=== PATIENT | female | born 1960 | race Caucasian/White ===

== ENCOUNTER 2018-04-28 11:52 | Emergency (ER) | payer MEDICARE, MEDICAID ==
[~2018-04-28] VITALS: Ht 157.5 cm; Wt 71.8 kg
[~2018-04-28 11:52] MED LIST: ATOR20TA66 PO; BUS15T PO; CLOP75TA33 PO; FENOFIBRATE PO; LAMO200T PO; LORA10TA7 PO; LURA40TA3 PO; METH750T3 PO; RANI300T7 PO; ROPI1TAB2 PO; Trazodone Hcl PO
[2018-04-28 12:10] VITALS: BP 116/58
[2018-04-28] MEDS ORDERED: morphine 4 MG/ML inj SYRINge IM ONE (12:40)
[2018-04-28] MEDS ORDERED: ondansetron 4mg rapidly disintigrating tab PO ONE (13:05)
[2018-04-28] MEDS ORDERED: normal saline 1000ML IV soln IVB ONE (13:10)
[2018-04-28 13:34] LABS: BASOPHILS % (AUTO) 0.5 % (0-1); EOSINOPHILS # (AUTO) 0.2 X10'3 (0-0.9); EOSINOPHILS % (AUTO) 2.4 % (0-6); HEMATOCRIT 35.6 % (35.0-45.0); HEMOGLOBIN 12.1 g/dl (12.0-16.0); LYMPHOCYTES # (AUTO) 1.6 X10'3 (1.1-4.8); LYMPHOCYTES % (AUTO) 18.3 % (21-51); MEAN CORPUSCULAR HEMOGLOBIN 29.6 PG (27.0-31.0); MEAN CORPUSCULAR HGB CONC 34.1 % (33.0-36.5); MEAN CORPUSCULAR VOLUME 86.8 FL (78-98); MEAN PLATELET VOLUME 7.3 FL (7.4-10.4); MONOCYTES # (AUTO) 0.6 X10'3 (0-0.9); MONOCYTES % (AUTO) 6.3 % (2-12); NEUTROPHILS # (AUTO) 6.5 X10'3 (1.8-7.7); NEUTROPHILS % (AUTO) 72.5 % (42-75); PLATELET COUNT 454 X10'3 (140-440); RED CELL DISTRIBUTION WIDTH 13.6 % (11.5-14.5)
[2018-04-28 13:50] LABS: ALANINE AMINOTRANSFERASE 21 U/L (12-78); ALBUMIN 3.8 G/DL (3.4-5.0); ALKALINE PHOSPHATASE 60 IU/L (46-116); ANION GAP 9 (8-16); ASPARTATE AMINO TRANSFERASE 28 U/L (10-37); BILIRUBIN,TOTAL 0.6 MG/DL (0.1-1.0); BLOOD UREA NITROGEN 9 MG/DL (7-18); BUN/CREATININE RATIO 6.7 (6.6-38.0); CALCIUM 10.5 MG/DL (8.5-10.1); CHLORIDE 106 MMOL/L (99-107); CREATININE 1.35 MG/DL (0.40-0.90); GLUCOSE 99 MG/DL (70-104); POTASSIUM 3.7 MMOL/L (3.5-5.1); SODIUM 142 MMOL/L (135-145); TOTAL CARBON DIOXIDE 26.7 MMOL/L (24-32); TOTAL PROTEIN 7.7 G/DL (6.4-8.2); eGFR 40 ML/MIN
[2018-04-28] MEDS ORDERED: ONDA8TAB13 PO (14:12)
== END 2018-04-28 14:42 | disposition home or self-care (01) ==
LOC: ER 11:52
DX: R10.30 Lower abdominal pain, unspecified (principal); K91.89 Other postprocedural complications and disorders of digestive system; F17.200 Nicotine dependence, unspecified, uncomplicated; Z90.49 Acquired absence of other specified parts of digestive tract; Z88.5 Allergy status to narcotic agent; Z79.899 Other long term (current) drug therapy
CPT/HCPCS: 36415; 80053; 85025; 96372; 99284; J2270; J7030

== ENCOUNTER 2018-05-21 23:34 | Emergency (ER) | payer MEDICARE, MEDICAID ==
[~2018-05-21 23:34] MED LIST changes: +AMOX500C2 PO; +ONDA8TAB13 PO
[2018-05-22] MEDS ORDERED: AMOX500C42 PO (21:18)
[2018-05-22] MEDS ORDERED: BUSP15TA PO (21:18)
[2018-05-22] MEDS ORDERED: PANT40TA4 PO (21:18)
[2018-05-22] MEDS ORDERED: [UNRECOGNIZED DRUG - OTHER] ONE (23:47)
== END 2018-05-22 00:25 | disposition left against medical advice (07) ==
LOC: ER 23:35
DX: R10.9 Unspecified abdominal pain (principal); Z53.21 Procedure and treatment not carried out due to patient leaving prior to being seen by health care provider
CPT/HCPCS: J0694

== ENCOUNTER 2018-05-22 16:24 | Inpatient (IN) | payer MEDICARE, MEDICAID ==
[~2018-05-22] VITALS: Ht 157.5 cm; Wt 68.6 kg
[2018-05-22 17:12] LABS: BASOPHILS # (AUTO) 0.1 X10'3 (0-0.2); BASOPHILS % (AUTO) 1.5 % (0-1); EOSINOPHILS # (AUTO) 0.1 X10'3 (0-0.9); EOSINOPHILS % (AUTO) 1.2 % (0-6); HEMATOCRIT 33.7 % (35.0-45.0); HEMOGLOBIN 11.5 g/dl (12.0-16.0); LYMPHOCYTES # (AUTO) 1.7 X10'3 (1.1-4.8); LYMPHOCYTES % (AUTO) 24.8 % (21-51); MEAN CORPUSCULAR HEMOGLOBIN 30.1 PG (27.0-31.0); MEAN CORPUSCULAR HGB CONC 34.3 % (33.0-36.5); MEAN CORPUSCULAR VOLUME 87.8 FL (78-98); MONOCYTES # (AUTO) 0.5 X10'3 (0-0.9); MONOCYTES % (AUTO) 6.8 % (2-12); NEUTROPHILS # (AUTO) 4.5 X10'3 (1.8-7.7); NEUTROPHILS % (AUTO) 65.7 % (42-75); PLATELET COUNT 238 X10'3 (140-440); RED BLOOD COUNT 3.84 X10'6 (4.20-5.60); RED CELL DISTRIBUTION WIDTH 14.5 % (11.5-14.5); WHITE BLOOD COUNT 6.9 X10'3 (4.5-11.0)
[2018-05-22 17:17] LABS: CLARITY,URINE CLEAR (Clear); COLOR,URINE YELLOW (Yellow); GLUCOSE, URINE NEGATIVE (Neg); KETONES,URINE NEGATIVE (Neg); LEUKOCYTE ESTERASE ,URINE NEGATIVE (Neg); NITRITES, URINE NEGATIVE (Neg); OCCULT BLOOD,URINE NEGATIVE (Neg); PROTEIN,URINE NEGATIVE (Neg); UROBILINOGEN,URINE 0.2 E.U/dL (0.2-1.0)
[2018-05-22 17:18] LABS: INR 1.1 INR; PROTHROMBIN TIME 11.6 SECONDS (9.0-12.0)
[2018-05-22 17:20] LABS: UA COLLECTION TYPE CLN CATCH MIDSTREAM
[2018-05-22 17:25] LABS: ALANINE AMINOTRANSFERASE 31 U/L (12-78); ALBUMIN 4.2 G/DL (3.4-5.0); ALBUMIN/GLOBULIN RATIO 1.3 (1.1-1.5); ALKALINE PHOSPHATASE 42 IU/L (46-116); ANION GAP 11 (8-16); ASPARTATE AMINO TRANSFERASE 22 U/L (10-37); BILIRUBIN,TOTAL 0.5 MG/DL (0.1-1.0); BLOOD UREA NITROGEN 6 MG/DL (7-18); BUN/CREATININE RATIO 4.3 (6.6-38.0); CALCIUM 10.8 MG/DL (8.5-10.1); CHLORIDE 104 MMOL/L (99-107); GLUCOSE 102 MG/DL (70-104); POTASSIUM 3.3 MMOL/L (3.5-5.1); SODIUM 139 MMOL/L (135-145); TOTAL CARBON DIOXIDE 24.2 MMOL/L (24-32); TOTAL PROTEIN 7.4 G/DL (6.4-8.2); eGFR 39 ML/MIN
[2018-05-22] MEDS ORDERED: AMOX500C42 PO (21:18)
[2018-05-22] MEDS ORDERED: BUSP15TA PO (21:18)
[2018-05-22] MEDS ORDERED: PANT40TA4 PO (21:18)
[2018-05-22] MEDS ORDERED: ondansetron/PF 4mg/2ml inj IV ONE (21:35)
[2018-05-22] MEDS ORDERED: HYDROmorphone 1 mg/ml syringe IV ONE (21:35)
[2018-05-22] MEDS ORDERED: HYDROmorphone inj. 0.5 MG/0.5 ML DISP.SYRIN IV PRN (22:45)
[2018-05-22] MEDS ORDERED: acetaminophen 325mg tablet PO PRN (22:45)
[2018-05-22] MEDS ORDERED: magnesium hydroxide 30ml (MOM) UD suspension PO PRN (22:45)
[2018-05-22 23:20] VITALS: BP 146/80
[2018-05-22] MEDS: normal saline 1000ml 1,000 ML IV SCH (23:33)
[2018-05-23] VITALS (14 sets, daily range): BP systolic 97–150; BP diastolic 6–86
[2018-05-23] MEDS ORDERED: ceFOXitin 1 GM ADDVANTAGE BAG 1,000 GM in normal saline 100ml IV soln 100 ML IV SCH ×2
[2018-05-23] MEDS ORDERED: SALINE IV PRN (02:50)
[2018-05-23] MEDS ORDERED: HYDROMORPHONE IV PRN (02:50)
[2018-05-23] MEDS: HYDROmorphone 1 mg/ml syringe IV PRN ×4 (03:06→19:06)
[2018-05-23 04:42] LABS: BASOPHILS # (AUTO) 0.1 X10'3 (0-0.2); BASOPHILS % (AUTO) 1.4 % (0-1); EOSINOPHILS # (AUTO) 0.1 X10'3 (0-0.9); EOSINOPHILS % (AUTO) 3.2 % (0-6); HEMOGLOBIN 10.3 g/dl (12.0-16.0); LYMPHOCYTES # (AUTO) 1.9 X10'3 (1.1-4.8); LYMPHOCYTES % (AUTO) 42.6 % (21-51); MEAN CORPUSCULAR HEMOGLOBIN 30.4 PG (27.0-31.0); MEAN CORPUSCULAR HGB CONC 34.1 % (33.0-36.5); MEAN PLATELET VOLUME 7.9 FL (7.4-10.4); MONOCYTES # (AUTO) 0.4 X10'3 (0-0.9); MONOCYTES % (AUTO) 8.1 % (2-12); NEUTROPHILS # (AUTO) 1.9 X10'3 (1.8-7.7); NEUTROPHILS % (AUTO) 44.7 % (42-75); PLATELET COUNT 190 X10'3 (140-440); RED BLOOD COUNT 3.37 X10'6 (4.20-5.60); RED CELL DISTRIBUTION WIDTH 14.6 % (11.5-14.5); WHITE BLOOD COUNT 4.4 X10'3 (4.5-11.0)
[2018-05-23 05:20] LABS: ALANINE AMINOTRANSFERASE 25 U/L (12-78); ALBUMIN 3.3 G/DL (3.4-5.0); ALBUMIN/GLOBULIN RATIO 1.2 (1.1-1.5); ALKALINE PHOSPHATASE 34 IU/L (46-116); ANION GAP 10 (8-16); ASPARTATE AMINO TRANSFERASE 22 U/L (10-37); BILIRUBIN,TOTAL 0.4 MG/DL (0.1-1.0); BLOOD UREA NITROGEN 7 MG/DL (7-18); BUN/CREATININE RATIO 5.4 (6.6-38.0); CALCIUM 9.3 MG/DL (8.5-10.1); CHLORIDE 108 MMOL/L (99-107); GLUCOSE 82 MG/DL (70-104); POTASSIUM 3.9 MMOL/L (3.5-5.1); SODIUM 144 MMOL/L (135-145); TOTAL CARBON DIOXIDE 26.2 MMOL/L (24-32); TOTAL PROTEIN 6.1 G/DL (6.4-8.2); eGFR 42 ML/MIN
[2018-05-23] MEDS: lurasidone 20mg tablet PO SCH ×2 (07:30→17:48)
[2018-05-23] MEDS: busPIRone 15mg tablet PO SCH ×4 (07:42→21:09)
[2018-05-23] MEDS: lamoTRIgine 100mg tablet PO SCH (07:43)
[2018-05-23] MEDS: cyclobenzaprine 10mg tablet PO SCH ×4 (07:43→21:09)
[2018-05-23] MEDS: atorvastatin 20mg tablet PO SCH (07:43)
[2018-05-23] MEDS: loratadine 10mg tablet PO SCH (07:43)
[2018-05-23] MEDS: pantoprazole 40mg Tablet.DR PO SCH (07:43)
[2018-05-23] MEDS ORDERED: METHOCARBAMOL 750 MG PO SCH (08:00)
[2018-05-23] MEDS ORDERED: heparin, porcine 5000 units/ml vial SQ SCH (08:00)
[2018-05-23] MEDS: normal saline 1000ml 1,000 ML IV SCH ×2 (08:58→18:44)
[2018-05-23] MEDS: DEXTROSE 5% IV SCH ×2 (08:58→16:19)
[2018-05-23] MEDS: WATER IV SCH ×2 (08:58→16:19)
[2018-05-23] MEDS: CEFOXITIN IV SCH ×2 (08:58→16:19)
[2018-05-23] MEDS: ondansetron/PF 4mg/2ml inj IV PRN ×2 (09:01→14:49)
[2018-05-23] MEDS ORDERED: MIDAZolam 5mg/5ml vial ONE (11:24)
[2018-05-23] MEDS ORDERED: fentaNYL/PF 50MCG/1 ML 2ML syringe ONE (11:24)
[2018-05-23] MEDS ORDERED: meperidine/PF 100mg/ml syringe ONE (11:24)
[2018-05-23] MEDS ORDERED: diphenhydrAMINE 50 mg/ml inj ONE (11:24)
[2018-05-23] MEDS ORDERED: iohexol 300 MG/1 ML 50ml polymer ONE (11:25)
[2018-05-23] MEDS ORDERED: glucagon, human recombinant 1mg kit ONE (11:25)
[2018-05-23] MEDS ORDERED: LIDOcaine Viscous 15ml cup ONE (11:25)
[2018-05-23] MEDS ORDERED: levoFLOXACIN-Levaquin 500mg/D5 0 ML IV ONE (11:25)
[2018-05-23] MEDS: mag hydrox/Alum hydrox/simeth 30ml oral suspension PO PRN (14:56)
[2018-05-23] MEDS: lactobacillus rhamnosus 10,000 MMU CELLS/CAPSULE PO SCH (20:15)
[2018-05-24] VITALS: BP 110/58
[2018-05-24] MEDS: CEFOXITIN IV SCH ×2 (00:13→08:06)
[2018-05-24] MEDS: DEXTROSE 5% IV SCH ×2 (00:13→08:06)
[2018-05-24] MEDS: WATER IV SCH ×2 (00:13→08:06)
[2018-05-24] MEDS: normal saline 1000ml 1,000 ML IV SCH (00:13)
[2018-05-24] MEDS: HYDROmorphone 1 mg/ml syringe IV PRN ×2 (03:44→08:18)
[2018-05-24] MEDS: ondansetron/PF 4mg/2ml inj IV PRN (03:45)
[2018-05-24 05:12] LABS: BASOPHILS % (AUTO) 0.6 % (0-1); EOSINOPHILS # (AUTO) 0.1 X10'3 (0-0.9); EOSINOPHILS % (AUTO) 2.2 % (0-6); HEMATOCRIT 29.8 % (35.0-45.0); HEMOGLOBIN 9.9 g/dl (12.0-16.0); LYMPHOCYTES # (AUTO) 1.1 X10'3 (1.1-4.8); LYMPHOCYTES % (AUTO) 22.3 % (21-51); MEAN CORPUSCULAR HEMOGLOBIN 29.6 PG (27.0-31.0); MEAN CORPUSCULAR HGB CONC 33.4 % (33.0-36.5); MEAN CORPUSCULAR VOLUME 88.6 FL (78-98); MEAN PLATELET VOLUME 8.2 FL (7.4-10.4); MONOCYTES # (AUTO) 0.3 X10'3 (0-0.9); MONOCYTES % (AUTO) 6.2 % (2-12); NEUTROPHILS # (AUTO) 3.5 X10'3 (1.8-7.7); NEUTROPHILS % (AUTO) 68.7 % (42-75); PLATELET COUNT 181 X10'3 (140-440); RED BLOOD COUNT 3.36 X10'6 (4.20-5.60); RED CELL DISTRIBUTION WIDTH 14.9 % (11.5-14.5); WHITE BLOOD COUNT 5.1 X10'3 (4.5-11.0)
[2018-05-24 05:23] LABS: ALANINE AMINOTRANSFERASE 62 U/L (12-78); ALBUMIN 2.9 G/DL (3.4-5.0); ALBUMIN/GLOBULIN RATIO 1.1 (1.1-1.5); ALKALINE PHOSPHATASE 91 IU/L (46-116); ANION GAP 9 (8-16); ASPARTATE AMINO TRANSFERASE 83 U/L (10-37); BILIRUBIN,TOTAL 0.5 MG/DL (0.1-1.0); BLOOD UREA NITROGEN 10 MG/DL (7-18); BUN/CREATININE RATIO 9.2 (6.6-38.0); CALCIUM 9.1 MG/DL (8.5-10.1); CHLORIDE 108 MMOL/L (99-107); CREATININE 1.09 MG/DL (0.40-0.90); GLUCOSE 83 MG/DL (70-104); POTASSIUM 3.9 MMOL/L (3.5-5.1); SODIUM 141 MMOL/L (135-145); TOTAL CARBON DIOXIDE 23.6 MMOL/L (24-32); TOTAL PROTEIN 5.5 G/DL (6.4-8.2); eGFR 52 ML/MIN
[2018-05-24] MEDS: mag hydrox/Alum hydrox/simeth 30ml oral suspension PO PRN (05:23)
[2018-05-24 07:17] VITALS: BP 108/58
[2018-05-24] MEDS: busPIRone 15mg tablet PO SCH (08:06)
[2018-05-24] MEDS: pantoprazole 40mg Tablet.DR PO SCH (08:06)
[2018-05-24] MEDS: cyclobenzaprine 10mg tablet PO SCH (08:06)
[2018-05-24] MEDS: lamoTRIgine 100mg tablet PO SCH (08:06)
[2018-05-24] MEDS: atorvastatin 20mg tablet PO SCH (08:06)
[2018-05-24] MEDS: lactobacillus rhamnosus 10,000 MMU CELLS/CAPSULE PO SCH (08:06)
[2018-05-24] MEDS: loratadine 10mg tablet PO SCH (08:06)
[2018-05-24] MEDS: lurasidone 20mg tablet PO SCH (08:06)
== END 2018-05-24 10:15 | disposition home or self-care (01) | DRG 444 ==
LOC: ER 16:25 → ED HOLD 22:44 → SUR 3N 23:20 → CMPBEDREQ 23:41
PROVIDERS: ADMIT Internal Medicine; ATTEND Family Medicine
PROC: 0FC98ZZ Extirpation of Matter from Common Bile Duct, Via Natural or Artificial Opening Endoscopic (ICD-10-PCS; principal; 2018-05-23)
PROC: 0F798ZZ Dilation of Common Bile Duct, Via Natural or Artificial Opening Endoscopic (ICD-10-PCS; 2018-05-23)
PROC: BF111ZZ Fluoroscopy of Biliary and Pancreatic Ducts using Low Osmolar Contrast (ICD-10-PCS; 2018-05-23)
DX: K80.51 Calculus of bile duct without cholangitis or cholecystitis with obstruction (principal); N17.0 Acute kidney failure with tubular necrosis; D64.9 Anemia, unspecified; N18.9 Chronic kidney disease, unspecified; K57.90 Diverticulosis of intestine, part unspecified, without perforation or abscess without bleeding; E05.90 Thyrotoxicosis, unspecified without thyrotoxic crisis or storm; F31.9 Bipolar disorder, unspecified; K83.8 Other specified diseases of biliary tract; F17.200 Nicotine dependence, unspecified, uncomplicated; Z90.49 Acquired absence of other specified parts of digestive tract; Z88.5 Allergy status to narcotic agent; Z79.02 Long term (current) use of antithrombotics/antiplatelets; Z79.899 Other long term (current) drug therapy; Z86.718 Personal history of other venous thrombosis and embolism
CPT/HCPCS: 36415; 74176; 80053; 81003; 85025; 85610; 87070; 96374; 96375; 99285; A4620; G0500; J0694; J1170; J1200; J1610; J1956; J2175; J2250; J2405; J3010; J7030; J7060; Q9967

== ENCOUNTER 2018-10-27 08:17 | Emergency (ER) | payer MEDICARE, MEDICAID ==
[~2018-10-27] VITALS: Ht 157.5 cm; Wt 66.0 kg
[~2018-10-27 08:17] MED LIST changes: -AMOX500C2 PO; -BUS15T PO; +BUSP15TA PO; -ONDA8TAB13 PO; +PANT40TA4 PO; +POLY17PO10 PO; -ROPI1TAB2 PO; -Trazodone Hcl PO
[2018-10-27] MEDS ORDERED: normal saline 1000ML IV soln IVB ONE (08:50)
[2018-10-27] MEDS ORDERED: ondansetron/PF 4mg/2ml inj IV ONE (08:50)
[2018-10-27 08:52] LABS: CLARITY,URINE CLEAR (Clear); COLOR,URINE YELLOW (Yellow); GLUCOSE, URINE NEGATIVE (Neg); KETONES,URINE NEGATIVE (Neg); LEUKOCYTE ESTERASE ,URINE TRACE (Neg); NITRITES, URINE NEGATIVE (Neg); OCCULT BLOOD,URINE NEGATIVE (Neg); PROTEIN,URINE NEGATIVE (Neg); UROBILINOGEN,URINE 0.2 E.U/dL (0.2-1.0)
[2018-10-27 09:06] LABS: BASOPHILS # (AUTO) 0.1 X10'3 (0-0.2); BASOPHILS % (AUTO) 0.9 % (0-1); EOSINOPHILS # (AUTO) 0.2 X10'3 (0-0.9); EOSINOPHILS % (AUTO) 2.5 % (0-6); HEMATOCRIT 37.3 % (35.0-45.0); HEMOGLOBIN 12.6 g/dl (12.0-16.0); LYMPHOCYTES # (AUTO) 1.1 X10'3 (1.1-4.8); LYMPHOCYTES % (AUTO) 14.4 % (21-51); MEAN CORPUSCULAR HEMOGLOBIN 29.8 PG (27.0-31.0); MEAN CORPUSCULAR HGB CONC 33.7 % (33.0-36.5); MEAN CORPUSCULAR VOLUME 88.3 FL (78-98); MEAN PLATELET VOLUME 7.7 FL (7.4-10.4); MONOCYTES # (AUTO) 0.4 X10'3 (0-0.9); MONOCYTES % (AUTO) 5.4 % (2-12); NEUTROPHILS % (AUTO) 76.8 % (42-75); PLATELET COUNT 333 X10'3 (140-440); RED BLOOD COUNT 4.22 X10'6 (4.20-5.60); RED CELL DISTRIBUTION WIDTH 14.4 % (11.5-14.5); WHITE BLOOD COUNT 7.9 X10'3 (4.5-11.0)
[2018-10-27 09:06] LABS: UA COLLECTION TYPE CLN CATCH MIDSTREAM
[2018-10-27 09:07] LABS: BACTERIA,URINE FEW /HPF (Neg); MUCUS STRANDS NONE SEEN /LPF (Neg); RBC,URINE NONE SEEN /HPF (0-2); SQUAMOUS EPITHELIAL CELL,UR FEW /LPF (FEW); WBC,URINE 0-4 /HPF (0-4)
[2018-10-27 09:18] LABS: INR 1.2 INR; PROTHROMBIN TIME 11.7 SECONDS (9.0-12.0)
[2018-10-27 09:19] LABS: ALANINE AMINOTRANSFERASE 26 U/L (12-78); ALBUMIN 4.2 G/DL (3.4-5.0); ALBUMIN/GLOBULIN RATIO 1.2 (1.1-1.5); ALKALINE PHOSPHATASE 49 IU/L (46-116); ANION GAP 8 (8-16); ASPARTATE AMINO TRANSFERASE 32 U/L (10-37); BILIRUBIN,TOTAL 0.5 MG/DL (0.1-1.0); BLOOD UREA NITROGEN 22 MG/DL (7-18); BUN/CREATININE RATIO 17.7 (6.6-38.0); CALCIUM 10.2 MG/DL (8.5-10.1); CHLORIDE 104 MMOL/L (99-107); CREATININE 1.24 MG/DL (0.40-0.90); GLUCOSE 98 MG/DL (70-104); LIPASE 206 U/L (73-393); POTASSIUM 4.4 MMOL/L (3.5-5.1); SODIUM 139 MMOL/L (135-145); TOTAL CARBON DIOXIDE 27.5 MMOL/L (24-32); TOTAL PROTEIN 7.6 G/DL (6.4-8.2); eGFR 44 ML/MIN
[2018-10-27 10:31] VITALS: BP 117/69
[2018-10-27] MEDS ORDERED: ONDA4TAB9 SL (10:33)
== END 2018-10-27 10:45 | disposition home or self-care (01) ==
LOC: ER 08:18
DX: R10.31 Right lower quadrant pain (principal); R11.2 Nausea with vomiting, unspecified; Z90.49 Acquired absence of other specified parts of digestive tract; Z88.5 Allergy status to narcotic agent; Z88.6 Allergy status to analgesic agent; Z79.01 Long term (current) use of anticoagulants; Z79.899 Other long term (current) drug therapy
CPT/HCPCS: 36415; 74018; 80053; 81001; 83690; 85025; 85610; 87088; 96361; 96374; 99284; J2405; J7030

== ENCOUNTER 2019-01-31 07:35 | Inpatient (IN) | payer MEDICARE, MEDICAID | END 2019-02-02 13:53 | disposition home or self-care (01) | LOC: PAS 07:35 → SUR 3N 15:16 | PROC: 0WQF0ZZ Repair Abdominal Wall, Open Approach (ICD-10-PCS; principal; 2019-01-31 11:01) | PROC: 0WUF0JZ Supplement Abdominal Wall with Synthetic Substitute, Open Approach (ICD-10-PCS; 2019-01-31 11:01) | DX: K43.2 Incisional hernia without obstruction or gangrene (principal); M62.00 Separation of muscle (nontraumatic), unspecified site ==

== ENCOUNTER 2019-02-07 19:07 | Emergency (ER) | payer MEDICARE, MEDICAID ==
[~2019-02-07] VITALS: Ht 157.5 cm; Wt 62.0 kg
[~2019-02-07 19:07] MED LIST changes: +BREX3TAB PO; +HYDR50CA5 PO; +LEVO25TA7 PO; -LURA40TA3 PO; -PANT40TA4 PO; +PER10325T PO; +ROPI1TAB4 PO
[2019-02-07 19:08] VITALS: BP 146/65
--- NOTE | 2019-02-07 19:22 | NUR ---
EKG 245
== END 2019-02-07 21:10 | disposition home or self-care (01) ==
LOC: ER 19:08
DX: R41.0 Disorientation, unspecified (principal); E05.90 Thyrotoxicosis, unspecified without thyrotoxic crisis or storm; Z90.49 Acquired absence of other specified parts of digestive tract; Z88.6 Allergy status to analgesic agent
CPT/HCPCS: 93005; 99283

== ENCOUNTER 2020-03-31 10:41 | Emergency (ER) | payer MEDICARE, MEDICAID ==
[~2020-03-31] VITALS: Ht 154.9 cm; Wt 73.6 kg
[~2020-03-31 10:41] MED LIST changes: -LAMO200T PO; +LAMO200T10 PO; -ROPI1TAB4 PO; +ROPI1TAB6 PO
[2020-03-31] MEDS ORDERED: ketorolac trometh. 30mg/ml inj. IM ONE (12:55)
[2020-03-31] MEDS ORDERED: HYDR-4353 PO (13:57)
[2020-03-31 14:00] VITALS: BP 154/77
== END 2020-03-31 14:03 | disposition home or self-care (01) ==
LOC: ER 10:41
DX: M25.571 Pain in right ankle and joints of right foot (principal); F31.9 Bipolar disorder, unspecified; F17.200 Nicotine dependence, unspecified, uncomplicated; Z86.718 Personal history of other venous thrombosis and embolism; Z90.49 Acquired absence of other specified parts of digestive tract; Z90.710 Acquired absence of both cervix and uterus; Z88.5 Allergy status to narcotic agent; Z79.899 Other long term (current) drug therapy
CPT/HCPCS: 93971; 96372; 99284; J1885

== ENCOUNTER 2021-06-03 14:25 | Emergency (ER) | payer MEDICARE, MEDICAID ==
[~2021-06-03] VITALS: Ht 157.5 cm; Wt 75.0 kg
[~2021-06-03 14:25] MED LIST changes: +METH-798 PO; -METH750T3 PO
[2021-06-03] MEDS ORDERED: CYCL-1 PO (15:15)
[2021-06-03] MEDS ORDERED: IBUP-1984 PO (15:15)
[2021-06-03] MEDS ORDERED: ketorolac tromethamine 15mg/ml inj. IM ONE (15:15)
[2021-06-03] MEDS ORDERED: cyclobenzaprine 10mg tablet PO ONE (15:15)
[2021-06-03 15:57] VITALS: BP 123/75
== END 2021-06-03 15:55 | disposition home or self-care (01) ==
LOC: ER 14:26
DX: M62.838 Other muscle spasm (principal); I10 Essential (primary) hypertension; F31.9 Bipolar disorder, unspecified; Z86.718 Personal history of other venous thrombosis and embolism; Z90.89 Acquired absence of other organs; Z90.49 Acquired absence of other specified parts of digestive tract; Z88.5 Allergy status to narcotic agent; Z88.8 Allergy status to other drugs, medicaments and biological substances; Z79.899 Other long term (current) drug therapy
CPT/HCPCS: 96372; 99283; J1885

== ENCOUNTER 2022-02-19 15:45 | Emergency (ER) | payer MEDICARE, MEDICAID ==
[~2022-02-19] VITALS: Ht 157.5 cm; Wt 82.3 kg
[~2022-02-19 15:45] MED LIST changes: +CYCL-1 PO
[2022-02-19] MEDS ORDERED: ondansetron 4mg rapidly disintigrating tab PO ONE (17:20)
--- NOTE | 2022-02-19 17:45 | NUR ---
PT PASSED PO EVA
[2022-02-19] MEDS ORDERED: ONDA4TAB12 PO (17:46)
[2022-02-19 17:55] VITALS: BP 131/83
== END 2022-02-19 17:57 | disposition home or self-care (01) ==
LOC: ER 15:46
DX: A08.4 Viral intestinal infection, unspecified (principal); E05.90 Thyrotoxicosis, unspecified without thyrotoxic crisis or storm; Z20.822 Contact with and (suspected) exposure to COVID-19; Z86.718 Personal history of other venous thrombosis and embolism; Z90.49 Acquired absence of other specified parts of digestive tract; Z88.8 Allergy status to other drugs, medicaments and biological substances; Z79.899 Other long term (current) drug therapy; Z79.2 Long term (current) use of antibiotics
CPT/HCPCS: 87635; 99283; C9803

== ENCOUNTER 2022-03-02 12:28 | Emergency (ER) | payer MEDICARE, MEDICAID ==
[~2022-03-02] VITALS: Ht 157.5 cm; Wt 82.3 kg
[~2022-03-02 12:28] MED LIST changes: +ONDA4TAB12 PO
[2022-03-02 12:32] VITALS: BP 136/71
--- NOTE | 2022-03-02 14:35 | NUR ---
PT STATED SHE WANTS TO LEFT BECAUSE THE CAREGIVER FOR HER 89YR OLD MOM ARE FINISHING THEIR SHIFT.
== END 2022-03-02 14:55 | disposition home or self-care (01) ==
LOC: ER 12:29
DX: T59.891A Toxic effect of other specified gases, fumes and vapors, accidental (unintentional), initial encounter (principal); R07.89 Other chest pain; R11.2 Nausea with vomiting, unspecified; E03.9 Hypothyroidism, unspecified; F31.9 Bipolar disorder, unspecified; Z86.718 Personal history of other venous thrombosis and embolism; Z90.89 Acquired absence of other organs; Z90.49 Acquired absence of other specified parts of digestive tract; Z88.5 Allergy status to narcotic agent; Z88.8 Allergy status to other drugs, medicaments and biological substances; Z79.899 Other long term (current) drug therapy; Y92.89 Other specified places as the place of occurrence of the external cause
CPT/HCPCS: 71045; 99283

== ENCOUNTER 2022-05-09 12:27 | Emergency (ER) | payer MEDICARE, MEDICAID | END 2022-05-09 12:50 | disposition left against medical advice (07) | LOC: ER 12:29 | DX: R06.02 Shortness of breath (principal); Z53.21 Procedure and treatment not carried out due to patient leaving prior to being seen by health care provider | CPT/HCPCS: 93005 ==

== ENCOUNTER 2025-08-25 09:28 | Emergency (ER) | payer MEDICARE, MEDICAID ==
[~2025-08-25] VITALS: Ht 162.6 cm; Wt 80.8 kg
[~2025-08-25 09:28] MED LIST changes: +ONDA-243 PO; -ONDA4TAB12 PO; +ROPI1TAB47 PO; -ROPI1TAB6 PO
[2025-08-25 09:32] VITALS: BP 141/82; PULSE 110; RESP 18; TEMP 97; O2SAT 99
--- NOTE | 2025-08-25 09:55 | Physician Documentation ---
History of Present Illness Chief Complaint: Vomiting Stated Complaint: VOMITING Primary Medical Doctor: Dorothy Baldwin [facility] This is a 65-year-old female who presents with persistent vomiting for three days, patient additionally reports generalized left leg pain. Patient has a additional concern for left leg frequently giving out. Medication Reconciliation Allergies: Coded Allergies: codeine (Verified Allergy, Unknown, 08/25/25) Scheduled Atorvastatin Calcium (Atorvastatin Calcium), 1 TAB PO DAILY, (Reported) Brexpiprazole (Rexulti), 1 TAB PO HS, (Reported) Buspirone HCl (Buspirone HCl), 15 MG PO TID, (Reported) Clopidogrel Bisulfate (Clopidogrel), 75 MG PO DAILY, (Reported) Cyclobenzaprine* (Cyclobenzaprine*), 1 TAB PO Q8H Hydroxyzine Pamoate (Hydroxyzine Pamoate), 1-2 TAB PO HS, (Reported) Lamotrigine (Lamotrigine), 150 MG PO BID, (Reported) Levothyroxine Sodium (Levothyroxine Sodium), 1 TAB PO DAILY, (Reported) Loratadine (Loratadine), 10 MG PO DAILY, (Reported) ONDANSETRON ODT 4mg tablet (Ondansetron Odt), 1 TABLET PO Q6H Oxycodone Hcl/Acetaminophen 10/325 MG* (Percocet 10/325 MG*), 1 TAB PO Q6H Ranitidine Hcl (Zantac), 150 MG PO DAILY, (Reported) Ropinirole Hcl (Ropinirole Hcl), 1 TAB PO HS, (Reported) [Fenofibrate], 160 MG PO DAILY, (Reported) Scheduled PRN Methocarbamol (Methocarbamol), 750 MG PO BID PRN for pain, (Reported) Polyethylene Glycol 3350* (Miralax*), 1 PACKET PO HS PRN for constipation, (Reported) Past Medical History Past Medical History: Hyperthyroidism, Deep Vein Thrombosis, *PSYCH*, Bipolar Past Surgical History: appendectomy, cholecystectomy Alcohol Use: None Drug Use: none Lives with: Family Lives In: Home Review of Systems ROS As stated above in the HPI, otherwise all systems are reviewed and negative. Physical Exam Vital Signs: Temperature: 97.0, Source: Temporal, Heart Rate: 110, Respiratory Rate: 18, BP: 141/82, Pulse Oximetry: 99, Weight: 80.850 Physical Exam VITALS: Reviewed and as above. GENERAL: Alert, nontoxic appearing, no apparent distress. HEENT: RESPIRATORY: No increased work of breathing, no respiratory distress, speaking in full clear sentences CHEST: CV: BACK: GI: MUSCULOSKELETAL: SKIN: NEURO: PSYCH: Progress Results/Orders Results/Orders Vital Signs 08/25/25 09:32 Temp 97.0 Pulse 110 Resp 18 B/P (MAP) 141/82 Pulse Ox 99 Medical Decision Making Findings MSE performed in triage and patient returned to ED lobby by nursing staff to await available ED room, patient appears to have eloped from lobby Differential Dx:Considerations: Include: Appendicitis, Bowel obstruction, Cholangitis, Cholelithasis, Constipation, Esophageal rupture, Esophagitis, Gastritis/PUD, Gastroenteritis, Inflammatory BD, Ischemic bowel, Urinary obstruction, Urinary tract infection, Urolithiasis Departure Disposition: 07 LEFT AWOL/ELOPED Impression: Primary Impression: Vomiting Qualified Codes: R11.2 - Nausea with vomiting, unspecified Additional Impression: Left leg pain Referrals: NO PRIMARY CARE PROVIDER (PCP) Signature Scribe Signature: No scribe Attestation: The note accurately reflects work and decisions made by me.FRED Spear 08/25/25 21:09 TORITO MILLER Aug 25, 2025 09:55
[2025-08-25 10:40] LABS: MEAN PLATELET VOLUME 7.2 FL (7.4-10.4); RED CELL DISTRIBUTION WIDTH 15.4 % (11.5-14.5)
[2025-08-25 10:58] LABS: CREATININE 1.43 MG/DL (0.40-0.90); TOTAL CARBON DIOXIDE 26.2 MMOL/L (24-32); eCRCL 34 ML/MIN; eGFR 37 ML/MIN
[2025-08-26] MEDS ORDERED: MIRT7.5T11 PO (09:47)
[2025-08-26] MEDS ORDERED: MELO-100 PO (09:47)
[2025-08-26] MEDS ORDERED: HYDR-3686 PO (09:47)
[2025-08-26] MEDS ORDERED: PROP40TA72 PO (09:47)
[2025-08-26] MEDS ORDERED: FAMO20TA8 PO (09:47)
[2025-08-26] MEDS ORDERED: CHOL400T57 PO (09:47)
== END 2025-08-25 16:48 | disposition left against medical advice (07) ==
LOC: ER 09:28
DX: R11.10 Vomiting, unspecified (principal); M79.605 Pain in left leg
CPT/HCPCS: 36415; 80053; 83690; 85025; 99283

== ENCOUNTER 2025-09-05 05:01 | Inpatient (IN) | payer MEDICARE, MEDICAID ==
[~2025-09-05] VITALS: Ht 154.9 cm; Wt 79.3 kg
[~2025-09-05 05:01] MED LIST changes: -ATOR20TA66 PO; -BREX3TAB PO; +CHOL400T57 PO; -CLOP75TA33 PO; -CYCL-1 PO; +FAMO20TA8 PO; -FENOFIBRATE PO; +HYDR-3686 PO; -HYDR50CA5 PO; -LAMO200T10 PO; -LORA10TA7 PO; +MELO-100 PO; -METH-798 PO; +MIRT7.5T11 PO; -ONDA-243 PO; -PER10325T PO; -POLY17PO10 PO; +PROP40TA72 PO; -RANI300T7 PO; -ROPI1TAB47 PO
--- NOTE | 2025-09-05 05:07 | ELECTROCARDIOGRAPH REPORT ---
[facility] Test Date: 2025-09-05 Test Time: 05:06:10 Pat Name: OLIVA FRYE Department: [facility]- Patient ID: [facility]-[id number] Room: Gender: F Legal Support Assistant: : 1960 Requested By: LOBO ADAME Order Number: [id number] Reading MD: Measurements Intervals [place] Rate: 76 P: 0 [place]: 0 QRS: 37 QRSD: 87 T: 56 QT: 388 QTc: 437 Interpretive Statements Atrial fibrillation Anteroseptal infarct, age indeterminate Please click the below link to view image of tracing.
--- NOTE | 2025-09-05 05:10 | Physician Documentation ---
History of Present Illness ~ Stated Complaint: CHEST PAIN Time Seen by MD: 05:09 Primary Medical Doctor: Dorothy Baldwin [facility] Patient presents to the emergency room with chest pain that began yesterday morning. Pain is pressure in the middle of her chest. She does note that she has been burping up a lot of acid recently. She does smoke, has first-degree relative with heart attack in his history of hyperlipidemia. She has never had a stress test that has not have a marketing ambassador. Pain exacerbated with deep breaths. Medication Reconciliation Allergies: Coded Allergies: codeine (Verified Allergy, Unknown, 09/05/25) Scheduled Buspirone HCl (Buspirone HCl), 30 MG PO BID, (Reported) Cholecalciferol (Vitamin D3) (Vitamin D3), 2 TAB PO DAILY, (Reported) Famotidine (Famotidine), 1 TAB PO DAILY, (Reported) Hydroxyzine Hcl* (Atarax*), 4 TAB PO HS, (Reported) Levothyroxine Sodium (Levothyroxine Sodium), 1 TAB PO DAILY, (Reported) Lisinopril (Lisinopril), 1 TAB PO DAILY Meloxicam* (Meloxicam*), 1 TAB PO BID, (Reported) Mirtazapine (Mirtazapine), 1 TAB PO HS, (Reported) Propranolol Hcl* (Inderal*), 3 TAB PO DAILY, (Reported) Semaglutide (Wegovy), 0.5 MG SUBCUT Q7D, (Reported) Scheduled PRN Nitroglycerin SL* (Nitrostat SL*), 1 TAB SL Q5MIN PRN for FOR CHEST PAIN Past Medical History Past Medical History: Hyperthyroidism, Deep Vein Thrombosis, *PSYCH*, Bipolar Past Surgical History: appendectomy, cholecystectomy Alcohol Use: None Drug Use: none Lives with: Family Lives In: Home Review of Systems ROS All review of systems negative except as per HPI Physical Exam Physical Exam General: Patient is awake, alert, oriented x4 in no acute distress Head: Normocephalic and atraumatic. Eyes: Conjunctival normal. EOMI. PERRL. ENT: Mucous membranes moist. Neck: Supple, trachea is midline. Chest: Clear to auscultation bilaterally without rales, rhonchi, or wheezes. There is no accessory muscle use or retractions. Cardiac: RRR without murmurs, gallops, or rubs. Abd: Soft, nondistended, nontender, with normoactive bowel sounds. No guarding, rebound, or rigidity. Extremities: Normal strength. Normal range of motion. No deformities or edema. No calf tenderness to palpation Progress Results/Orders Results/Orders Orders - TROY JAMISON MD Chest,Single View (09/05/25 05:02) Monitor (09/05/25 05:02) Saline Lock (09/05/25 05:02) Oxygen (09/05/25 05:02) Completed Orders - TROY JAMISON MD Chest,Single View (09/05/25 05:02) Cbc/Diff (09/05/25 05:02) BMP (09/05/25 05:02) PBNP (09/05/25 05:02) Electrocardiogram (09/05/25 05:02) Hs Troponin I W Calculations (09/05/25 05:02) Hs Troponin I W Calculations (09/05/25 07:02) Hs Troponin I W Calculations (09/05/25 08:02) Ondansetron Disint. Tablet (Zofran Odt T (09/05/25 05:20) Mag & Alum Hydrox/Simeth Susp (Maalox Or (09/05/25 05:20) Lidocaine 2% Viscous (Xylocaine 2% Visco (09/05/25 05:20) Aspirin 325mg Tablet (Aspirin 325mg Tabl (09/05/25 05:25) Pantoprazole 40mg Iv (Protonix 40mg Iv) (09/05/25 06:20) MG (09/05/25 05:55) PHOS (09/05/25 05:55) Vital Signs 09/05/25 09/05/25 09/05/25 09/05/25 05:08 05:17 05:17 05:34 Temp 97.9 97.6 Pulse 76 71 Resp 16 20 B/P (MAP) 144/77 151/91 (111) Pulse Ox 98 99 99 O2 Delivery Room Air* O2 Flow Rate 0 0 0 FiO2 21 09/05/25 09/05/25 06:05 08:57 Temp 97.7 Pulse 66 63 Resp 16 20 B/P (MAP) 126/82 (97) 125/70 (88) Pulse Ox 96 98 O2 Flow Rate 0 Laboratory Tests Test 09/05/25 05:55 09/05/25 08:15 09/05/25 10:06 White Blood Count 9.5 Red Blood Count 4.42 Hemoglobin 12.6 Hematocrit 36.9 Mean Corpuscular Volume 83.5 Mean Corpuscular Hemoglobin 28.5 Mean Corpuscular Hemoglobin Concent 34.1 Red Cell Distribution Width 14.3 Platelet Count 255 Mean Platelet Volume 7.2 L Neutrophils (%) (Auto) 69.8 Lymphocytes (%) (Auto) 17.5 L Monocytes (%) (Auto) 7.4 Eosinophils (%) (Auto) 3.2 Basophils (%) (Auto) 2.1 H Neutrophils # (Auto) 6.6 Lymphocytes # (Auto) 1.7 Monocytes # (Auto) 0.7 Eosinophils # (Auto) 0.3 Basophils # (Auto) 0.2 CBC Comment Sodium Level 140 Potassium Level 4.0 Chloride Level 104 Carbon Dioxide Level 28.2 Anion Gap 8 Blood Urea Nitrogen 28 H Creatinine 1.77 H Estimated GFR/1.73 m2 29 BUN/Creatinine Ratio 15.8 Glucose Level 108 H Calcium Level 10.0 Phosphorus Level 4.2 Magnesium Level 1.7 Troponin I High Sensitivity 4 4 6 Pro-B-Type Natriuretic Peptide 468 H Albumin 3.6 Chemistry Comments Troponin I High Sens Percent Delta 0 50 Troponin I Hi Sens Absolute Change 0 2 EKG/XRAY/CT/US/VASC/MRI EKG : Additional Comment EKG interpreted by myself shows time of 0506, rate 76, sinus rhythm, normal axis, no ST changes Medical Decision Making Findings Patient with elevated heart score of four Patient presented to the emergency room for evaluation of chest pain. Differen tials include but are not limited to ACS, reflux, pulmonary embolism, aortic pathology therefore emergent labs and imaging indicated. Labs and imaging pending in her to be followed up by oncoming physician Departure Admitted to Inpatient Unit: yes, to hospitalist Impression: Primary Impression: Chest pain Condition: Guarded Referrals: NO PRIMARY CARE PROVIDER (PCP) Prescriptions Nitroglycerin SL* (Nitrostat SL*) 0.4 Mg Tablet 1 TAB SL Q5MIN PRN for FOR CHEST PAIN, #25 TAB Prov: SYDNEY GODFREY MD 09/06/25 Lisinopril (Lisinopril) 5 Mg Tablet 1 TAB PO DAILY for 30 Days, #30 TAB 0 Refills Prov: SYDNEY GODFREY MD 09/06/25 Signature Scribe Signature: No scribe Attestation: The note accurately reflects work and decisions made by me.Troy Jamison MD 09/05/25 05:53 TROY JAMISON MD Sep 05, 2025 05:10
[2025-09-05] MEDS: mag hydrox/Alum hydrox/simeth 30ml oral suspension PO ONE (05:29)
[2025-09-05] MEDS: LIDOcaine 2% Viscous 15ml cup MM ONE (05:29)
[2025-09-05] MEDS: ondansetron 4mg rapidly disintigrating tab PO ONE (05:29)
[2025-09-05] MEDS ORDERED: SEMA0.5P SUBCUT (05:38)
--- NOTE | 2025-09-05 06:04 | RADIOLOGY REPORT ---
CHEST RADIOGRAPH Indication: CP Technique: Single frontal view of the chest was obtained COMPARISON: DI CHEST,SINGLE VIEW on DOS: 08/26/25, CHEST,SINGLE VIEW on DOS: 03/02/22 FINDINGS: Lines and Tubes: None Lungs: Clear Pleura: No effusion. No pneumothorax. Cardiomediastinal contours: Unremarkable Bones: Unremarkable IMPRESSION: No acute disease.
[2025-09-05 06:14] LABS: MEAN PLATELET VOLUME 7.2 FL (7.4-10.4); RED CELL DISTRIBUTION WIDTH 14.3 % (11.5-14.5)
[2025-09-05 06:29] LABS: CREATININE 1.77 MG/DL (0.40-0.90); PRO BRAIN NATRIURETIC PEPTIDE 468 PG/ML (0-125); TOTAL CARBON DIOXIDE 28.2 MMOL/L (24-32); eCRCL 24 ML/MIN; eGFR 29 ML/MIN
[2025-09-05] MEDS ORDERED: potassium Cl 20 mEq SR tablet PO PRN ×2 (10:15)
[2025-09-05] MEDS ORDERED: magnesium sulf-water 2g/50mL 50 ML IV PRN (10:15)
[2025-09-05] MEDS ORDERED: HYDROcodone/acetaminophen 10/325mg tab PO PRN (10:15)
[2025-09-05] MEDS ORDERED: magnesium Cl slow-release 64mg tablet PO PRN (10:15)
[2025-09-05] MEDS ORDERED: magnesium hydroxide 30ml (MOM) UD suspension PO PRN (10:15)
[2025-09-05] MEDS ORDERED: mag hydrox/Alum hydrox/simeth 30ml oral suspension PO PRN (10:15)
[2025-09-05] MEDS ORDERED: potassium Cl 40MEQ/1/2NS 520ml 520 ML IV PRN (10:15)
[2025-09-05] MEDS ORDERED: magnesium sulf-water 4G/100mL 100 ML IV PRN (10:15)
[2025-09-05] MEDS ORDERED: bisacodyl 10mg suppository rectal RC PRN (10:15)
[2025-09-05] MEDS ORDERED: acetaminophen 650mg rectal suppository RC PRN (10:15)
[2025-09-05] MEDS ORDERED: ondansetron/PF 4mg/2ml inj IV PRN (10:15)
[2025-09-05] MEDS ORDERED: ondansetron 4mg rapidly disintigrating tab PO PRN (10:15)
[2025-09-05] MEDS: normal saline 1000ml 1,000 ML IV SCH (10:26)
[2025-09-05 11:03] LABS: PHOSPHORUS 4.2 MG/DL (2.3-4.5)
--- NOTE | 2025-09-05 11:13 | HISTORY AND PHYSICAL ---
History & Physical Providers to CC ~ complaint, chest pain History of Present Illness Reason for Admit\Complaint: As above History of Present Illness This is a 65 years old female white, with history of multiple medical problems including chronic kidney disease, stage III, chronic tobacco abuse including currently, history of CHF diastolic ejection fraction unknown, GERD, hypothyroidism, history of DVT, bipolar disorder, cholecystectomy hypertension pre morbid obesity BMI 33, history of colonic diverticulosis left ovarian cyst, presented today to emergency department chief complaint chest pain, in addition Patient presents to the emergency room with chest pain that began yesterday morning. Pain is pressure in the middle of her chest. She does note that she has been burping up a lot of acid recently. She does smoke, has first-degree relative with heart attack in his history of hyperlipidemia. She has never had a stress test that has not have a research consultant. Pain exacerbated with deep breaths. Emergency department she was evaluated by physician was diagnosed with chest pain, decision was made to admit patient for further evaluation and treatment, no additional complaint or concern. Allergies: Coded Allergies: codeine (Verified Allergy, Unknown, 09/05/25) Active prescriptions I reviewed reconciled Home Medications Home Medications Active Reported Wegovy (Semaglutide) 0.5 Mg/0.5 Ml Pen.injctr 0.5 Mg SUBCUT Q7D 28 Days Vitamin D3 (Cholecalciferol (Vitamin D3)) 10 Mcg (400 Unit) Tablet 2 Tab PO DAILY 30 Days Mirtazapine 7.5 Mg Tablet 1 Tab PO HS 30 Days Atarax* (Hydroxyzine HCl) 25 Mg Tablet 4 Tab PO HS Famotidine 20 Mg Tablet 1 Tab PO DAILY 30 Days Meloxicam* (Meloxicam) 7.5 Mg Tablet 1 Tab PO BID 30 Days Inderal* (Propranolol HCl) 40 Mg Tablet 3 Tab PO DAILY 30 Days Levothyroxine Sodium 25 Mcg Tablet 1 Tab PO DAILY Buspirone HCl 15 Mg Tablet 30 Mg PO BID Past Medical History Past Medical History As in HPI Past Surgical History Surgical History Comment As in HPI Past Social History Social History Comment Positive for chronic tobacco abuse including currently, deny alcohol or illicit drug use, live with the family good social support Health Maintenance Health Maintenance Noncontributory ROS ROS Constitutional : no fever , no chills, or weakness. No diaphoresis. Allergic/Immunologic, no lymphadenopathy, no hives, no skin eruptions. Eyes, no recent visual changes, no eye pain, no photophobia. Ears, nose, mouth, throat, no sore throat, no nosebleed, no ear pain. Cardiovascular, no palpitations, skipped beats, positive for chest pain, no peripheral edema, Respiratory, no dyspnea, orthopnea, cough, hemoptysis, chest wall pain. Gastrointestinal, no abdominal pain, nausea, vomiting, constipation or diarrhea. : no dysuria, hematuria, pelvic pain, urethral d/c. Endocrine, no polyuria, polydipsia, recent unintentional weight gain or loss. Hematologic/Lymphatic, no petechiae, no enlarged lymph nodes, no bone pain. Integumentary, no rash, no skin lesions, Musculoskeletal, no muscle aches, or pain, no muscle cramps, no recent change in gait Neurological, no dizziness, no headache, no syncope, no paresthesia. Psychiatric, no delusions, visual hallucinations, or hearing hallucinations. ROS - in rest is as in HPI. Exam Vitals: Vital Signs Date Time Temp Pulse Resp B/P (MAP) Pulse Ox O2 Delivery O2 Flow Rate FiO2 09/05/25 10: 62 11 128/74 (92) 97 0 09/05/25 06:05 97.7 09/05/25 05:34 Room Air* 21 Vital signs, stable ,afebrile. Pulse Oximetry reflects adequate oxygenation. BMI is 33, weight 79 kg General: well developed, well nourished. Awake , alert, and oriented x4, resting comfortably in the bed, in no acute distress . Skin: Warm, dry, no pallor, no rash or petechiae. HEENT: Atraumatic, normocephalic, EOMI, anicteric sclera B; pink conjunctiva; PERRLA, normal oropharynx, moist oral and nasal mucosa. Tympanic membrane , nose , throat clear. Neck: Trachea midline. Supple, full range of motion, no JVD, bruit , hepatojugular reflex , lymphadenopathy or masses, or other lesions Cardiac: Regular rhythm, regular rate no murmurs, rubs, or gallops. Normal S1 and S2, no S3 noticed. PMI is normal. Respiratory: Equal breath sounds bilaterally, no tachypnea; lungs clear to auscultation bilaterally, no wheezing ,rub or rales, or crackles. Chest wall is symmetric and without deformity. No signs of trauma. Chest wall is nontender. No signs of respiratory distress. Resonance is normal upon percussion bilaterally. Gastrointestinal: Abdomen symmetric, non-distended, soft, non-tender, normal bowel sounds x4 quadrant, normoactive, no hepatosplenomegaly , no masses , no bruit, no flank pain bilaterally. No voluntary guarding, rebound, or rigidity. No tenderness to percussion. No pulsatile masses. Equal femoral pulses. No Ruby's sign or McBurney point tenderness. Back; no CVA tenderness bilaterally, no deformities. Neck and back are without deformity as well. No tenderness noted on palpation of the spinous processes. Spinous processes are midline. Cervical, thoracic, and lumbar paraspinal muscles are not tender and are without spasm. : Not indicated Musculoskeletal: Extremities, normal range of motion, non-tender, muscle strength 5/5 x 4. Negative Homans signs bilaterally on lower extremity. Distal pulses full symmetrical, no clubbing, cyanosis , edema. Neurological: Speech is clear, alert, and oriented x 4. No motor or sensory deficit, deep tendon reflexes normal, cerebellar intact. Cranial nerves II-XII intact. Psych: Alert and or appropriate, normal affect. Vascular: Good distal pulses, which are equal x4; capillary refill less than 2 seconds. Lymphatic, no lymphadenopathy. Diagnostic Data Last Recorded Lab Results: 09/05/25 0555 09/05/25 0555 Advance Care Planning Advanced Care plannin - 30 Minutes Additional Plan Assessment Chest pain precordial acute secondary to angina pectoris Acute renal failure Chronic tobacco abuse including currently, Chronic kidney disease stage 3 Hypertension fair control Pre more than obesity BMI 33 Lightheadedness Diastolic CHF in exacerbation ejection fraction unknown Additional comorbidities, history of DVT, bipolar disorder, cholecystectomy, colonic diverticulosis, left ovarian cyst, GERD Plan Serial troponin EKG Hep-Lock Lasix IV prn Patient started on aspirin, statin heparin prophylactic dose Additional lab work pending Echocardiography and Frances test pending Consulted for 5 minutes to stop using tobacco patient agrees started to nicotine patch Nutrition consult Reconciled home medications DVT gastropathy prophylaxis addressed Sepsis Screening Reassessment Date: Sep 05, 2025 Date of Service: Sep 05, 2025 Billing Provider: SYDNEY OGDFREY MD Common Visit Codes: 56055-[id number] INP/OBS CARE(HIGH) SYDNEY GODFREY MD Sep 05, 2025 11:13
[2025-09-05] MEDS: nicotine 21mg patch - 24 hr TD SCH (12:05)
[2025-09-05 12:53] LABS: APTT 26 SECONDS (22-32); INR 1.1 INR
[2025-09-05] MEDS ORDERED: aminophylline 250mg/10ml inj. IV PRN (13:25)
[2025-09-05] MEDS ORDERED: metoprolol tartrate 1mg/ml inj IV PRN (13:25)
[2025-09-05 13:39] LABS: LEUKOCYTE ESTERASE ,URINE NEGATIVE (Neg); NITRITES, URINE NEGATIVE (Neg); OCCULT BLOOD,URINE NEGATIVE (Neg)
[2025-09-05 13:45] LABS: URINE AMPHETAMINE SCREEN POSITIVE (Neg); URINE BARBITUATE SCREEN NEGATIVE (Neg); URINE BENZODIAZEPINES SCREEN NEGATIVE (Neg); URINE CANNABINOID SCREEN NEGATIVE (Neg); URINE COCAINE SCREEN NEGATIVE (Neg); URINE METHADONE SCREEN NEGATIVE (Neg); URINE OPIATE SCREEN NEGATIVE (Neg); URINE PHENCYCLIDINE SCREEN NEGATIVE (Neg)
[2025-09-05 13:52] LABS: UA COLLECTION TYPE NON-SPECIFIED
[2025-09-05] MEDS ORDERED: morphine 4 MG/ML inj SYRINge IV PRN (16:36)
[2025-09-05 16:54] VITALS: BP 156/64; PULSE 64; RESP 13; TEMP 97.5; O2SAT 98
[2025-09-05] MEDS: K and/or MAG REPLACEMENT MC SCH (19:12)
[2025-09-05 20:00] VITALS: RESP 15; O2SAT 96
[2025-09-05] MEDS: busPIRone 15mg tablet PO SCH (21:32)
[2025-09-05] MEDS: docusate sod 100mg capsule PO SCH (21:32)
[2025-09-05] MEDS: heparin, porcine 5000 units/ml vial SQ SCH (21:33)
[2025-09-05 22:00] VITALS: BP 123/61; PULSE 60; RESP 15; TEMP 97.5; O2SAT 96
[2025-09-06] VITALS (11 sets, daily range): BP systolic 132–176; BP diastolic 61–91; PULSE 60–87; RESP 11–18; TEMP 97.3–97.6; O2SAT 96–100
[2025-09-06 06:42] LABS: MEAN PLATELET VOLUME 7.2 FL (7.4-10.4); RED CELL DISTRIBUTION WIDTH 14.1 % (11.5-14.5)
[2025-09-06 07:08] LABS: CHOL/HDL RATIO 4.8 (0.00-4.99); CREATININE 1.74 MG/DL (0.40-0.90); LDL CHOLESTEROL 144 MG/DL (50-100); TOTAL CARBON DIOXIDE 30.5 MMOL/L (24-32); eCRCL 24 ML/MIN; eGFR 29 ML/MIN
[2025-09-06] MEDS: levoTHYROXINE 25mcg tablet PO SCH (08:05)
[2025-09-06] MEDS: aspirin 81mg, enteric-coated 1 TAB TABLET.DR PO SCH (08:05)
[2025-09-06] MEDS: pantoprazole 40mg Tablet.DR PO SCH (08:06)
[2025-09-06] MEDS: HYDROcodone/acetaminophen 5mg/325mg tablet PO PRN (08:11)
[2025-09-06] MEDS: regadenoson 0.4mg/5ml syringe IV PRN (10:56)
--- NOTE | 2025-09-06 12:44 | RADIOLOGY REPORT ---
Reason for study/Clinical History: CP Comparison Study: None Myocardial Perfusion Study with SPECT Technique: The patient received an intravenous injection of of technetium-99m Sestamibi while at rest. After a short delay, SPECT tomographic images of the heart were obtained. The patient then went to the stress lab where they received an intravenous Lexiscan utilizing standard protocol. technetium-99m Sestamibi was injected intravenously immediately after the start of the infusion. Gated SPECT tomographic images of the heart were acquired and processed. Findings: Rotating planar images show no significant attenuation artifact. The left ventricular size is within normal limits. Stress tomographic images demonstrate normal perfusion. Resting tomographic images demonstrate a similar pattern. Gated portion of the study shows normal wall motion and myocardial thickening. The left ventricular ejection fraction is 81%. (normal greater than 50%) Impression: 1. Normal left ventricular size, wall motion, and function, without evidence of infarction or of myocardium at ischemic risk. 2. The left ventricular ejection fraction is 81%.
[2025-09-06] MEDS ORDERED: NITR0.4T51 SL (13:19)
[2025-09-06] MEDS ORDERED: LISI5TAB22 PO (13:19)
--- NOTE | 2025-09-06 13:24 | DISCHARGE SUMMARY ---
Discharge Summary Providers to No new complaint today asking to be discharged home for emergency family reasons ~ Discharge Summary Assessment Chest pain precordial acute secondary to angina pectoris Acute renal failure Chronic tobacco abuse including currently, Chronic kidney disease stage 3 Hypertension fair control Pre more than obesity BMI 33 Lightheadedness Diastolic CHF in exacerbation Additional comorbidities, history of DVT, bipolar disorder, cholecystectomy, colonic diverticulosis, left ovarian cyst, GERD Admission Diagnosis: CP Admission Diagnosis Comment: Chest pain precordial acute secondary to angina pectoris Acute renal failure Chronic tobacco abuse including currently, Chronic kidney disease stage 3 Hypertension fair control Pre more than obesity BMI 33 Lightheadedness Diastolic CHF in exacerbation Additional comorbidities, history of DVT, bipolar disorder, cholecystectomy, colonic diverticulosis, left ovarian cyst, GERD Hospital Course DATE OF ADMISSION: September 05, 2025 DATE OF DISCHARGE: September 06, 2025 Discharge Diagnosis\Comment: Chest pain precordial acute secondary to angina pectoris Acute renal failure Chronic tobacco abuse including currently, Chronic kidney disease stage 3 Hypertension fair control Pre more than obesity BMI 33 Lightheadedness Diastolic CHF in exacerbation Additional comorbidities, history of DVT, bipolar disorder, cholecystectomy, colonic diverticulosis, left ovarian cyst, GERD Operations\Procedures: Non Consultants: Non Complications: None Condition on DC: Stable Discharge Summary: This is a 65 years old female white, with history of multiple medical problems including chronic kidney disease, stage III, chronic tobacco abuse including currently, history of CHF diastolic ejection fraction unknown, GERD, hypothyroidism, history of DVT, bipolar disorder, cholecystectomy hypertension pre morbid obesity BMI 33, history of colonic diverticulosis left ovarian cyst, presented today to emergency department chief complaint chest pain, in addition Patient presents to the emergency room with chest pain that began yesterday morning. Pain is pressure in the middle of her chest. She does note that she has been burping up a lot of acid recently. She does smoke, has first-degree relative with heart attack in his history of hyperlipidemia. She has never had a stress test that has not have a sales engagement executive. Pain exacerbated with deep breaths. Emergency department she was evaluated by physician was diagnosed with chest pain, decision was made to admit patient for further evaluation and treatment, no additional complaint or concern. After admission patient was extensively evaluated and treated, today she has no complaint no chest pain asking to be discharged home for emergency family reasons, I explained to the patient the necessity to continue inpatient evaluation and treatment, patient declined, since she likes to be discharged for family emergency reasons, risk of severe complications and explained, follow-up PCP in the morning, with Nephrology, Cardiology in the morning and medication reconciled return to emergency department if condition worsens, today on physical exam Vital signs, stable ,afebrile. Pulse Oximetry reflects adequate oxygenation. General: well developed, well nourished. Awake , alert, and oriented x4, resting comfortably in the bed, in no acute distress . Skin: Warm, dry, no pallor, no rash or petechiae. HEENT: Atraumatic, normocephalic, EOMI, anicteric sclera B; pink conjunctiva; PERRLA, normal oropharynx, moist oral and nasal mucosa. Tympanic membrane , nose , throat clear. Neck: Trachea midline. Supple, full range of motion, no JVD, bruit , hepatojugular reflex , lymphadenopathy or masses, or other lesions Cardiac: Regular rhythm, regular rate no murmurs, rubs, or gallops. Normal S1 and S2, no S3 noticed. PMI is normal. Respiratory: Equal breath sounds bilaterally, no tachypnea; lungs clear to auscultation bilaterally, no wheezing ,rub or rales, or crackles. Chest wall is symmetric and without deformity. No signs of trauma. Chest wall is nontender. No signs of respiratory distress. Resonance is normal upon percussion bilaterally. Gastrointestinal: Abdomen symmetric, non-distended, soft, non-tender, normal bowel sounds x4 quadrant, normoactive, no hepatosplenomegaly , no masses , no bruit, no flank pain bilaterally. No voluntary guarding, rebound, or rigidity. No tenderness to percussion. No pulsatile masses. Equal femoral pulses. No Ruby's sign or McBurney point tenderness. Back; no CVA tenderness bilaterally, no deformities. Neck and back are without deformity as well. No tenderness noted on palpation of the spinous processes. Spinous processes are midline. Cervical, thoracic, and lumbar paraspinal muscles are not tender and are without spasm. Musculoskeletal: Extremities, normal range of motion, non-tender, muscle strength 5/5 x 4. Negative Homans signs bilaterally on lower extremity. Distal pulses full symmetrical, no clubbing, cyanosis , edema. Neurological: Speech is clear, alert, and oriented x 4. No motor or sensory deficit, deep tendon reflexes normal, cerebellar intact. Cranial nerves II-XII intact. Psych: Alert and or appropriate, normal affect. Vascular: Good distal pulses, which are equal x4; capillary refill less than 2 seconds. Lymphatic, no lymphadenopathy. *Problems/Diagnosis: (1) Chest pain Status: Acute (2) Acute kidney injury Total Time Spent on D/C: > 30 Minutes Date of Service: Sep 06, 2025 Billing Provider: SYDNEY GODFREY MD Common Visit Codes: 05325-ADS/OBS DISCH DAY >30min SYDNEY GODFREY MD Sep 06, 2025 13:24
== END 2025-09-06 14:09 | disposition home or self-care (01) | DRG 291 ==
LOC: ER 05:02 → ED HOLD 10:18 → PCU 3S 16:29
PROVIDERS: ADMIT Family Medicine; ATTEND Family Medicine
PROC: 4A02XM4 Measurement of Cardiac Total Activity, External Approach (ICD-10-PCS; principal; 2025-09-06)
PROC: 3E033HZ Introduction of Radioactive Substance into Peripheral Vein, Percutaneous Approach (ICD-10-PCS; 2025-09-06)
DX: I13.0 Hypertensive heart and chronic kidney disease with heart failure and stage 1 through stage 4 chronic kidney disease, or unspecified chronic kidney disease (principal); I50.33 Acute on chronic diastolic (congestive) heart failure; N17.9 Acute kidney failure, unspecified; I20.9 Angina pectoris, unspecified; E03.9 Hypothyroidism, unspecified; F31.9 Bipolar disorder, unspecified; E78.5 Hyperlipidemia, unspecified; K21.9 Gastro-esophageal reflux disease without esophagitis; E66.9 Obesity, unspecified; N18.30 Chronic kidney disease, stage 3 unspecified; F17.200 Nicotine dependence, unspecified, uncomplicated; Z88.5 Allergy status to narcotic agent; Z79.899 Other long term (current) drug therapy; Z90.49 Acquired absence of other specified parts of digestive tract; Z68.33 Body mass index [BMI] 33.0-33.9, adult; Z86.718 Personal history of other venous thrombosis and embolism
CPT/HCPCS: 36415; 71045; 78452; 80048; 80061; 80305; 81003; 83735; 83880; 84100; 84484; 85025; 85379; 85610; 85730; 87081; 93005; 93017; 96361; 96374; 99285; A9500; G0378; J1644; J2470; J2785; J7030